=== PATIENT | female | born 1965 | race Caucasian/White ===

== ENCOUNTER 2016-08-24 06:22 | Day surgery (SDC) | payer OTHER ==
[2016-08-23 09:22] LABS: A/G RATIO 1.2 (0.7-1.9); ALBUMIN 4.2 G/DL (3.5-5.0); ALKALINE PHOSPHATASE 94 U/L (45-117); CALCIUM, SERUM 9.3 MG/DL (8.5-10.4); CHLORIDE, SERUM 104 MMOL/L (96-112); CO2 (CARBON DIOXIDE) 30 MMOL/L (24-34); CREATININE 0.95 MG/DL (0.55-1.02); GFR AFRICAN AMERICAN 80 ML/MIN (>=60); GFR NON AFRICAN AMERICAN 69 ML/MIN (>=60); GLOBULIN 3.5 G/DL (2.5-4.1); GLUCOSE, SERUM 87 MG/DL (60-99); POTASSIUM, SERUM 4.7 MMOL/L (3.5-5.3); SGOT(AST) 17 U/L (5-40); SGPT(ALT) 38 U/L (5-65); SODIUM, SERUM 143 MMOL/L (135-148); TOTAL BILIRUBIN 0.5 MG/DL (0-1.2); TOTAL PROTEIN 7.7 G/DL (6.0-8.5)
[2016-08-23 09:24] LABS: BUN (BLOOD UREA NITROGEN) 11 MG/DL (6-23)
[2016-08-23 09:26] LABS: BASOPHILS 0.8 %; BASOPHILS ABSOLUTE 0.07 10/3/uL (0.0-0.16); EOSINOPHILS ABSOLUTE 0.25 10/3/uL (0.0-0.53); HEMATOCRIT 42.9 % (36.0-48.0); HEMOGLOBIN 15.2 g/dL (12.0-16.0); IMMATURE GRANULOCYTES 0.1 %; IMMATURE GRANULOCYTES ABSOLUTE 0.01 10/3/uL (0.0-0.11); LYMPHOCYTES 35.3 %; LYMPHOCYTES ABSOLUTE 2.92 10/3/uL (0.67-4.30); MEAN CORPUS HGB CONC 35.4 g/dL (32.0-36.0); MEAN CORPUSCULAR HEMOGLOB 31.5 pg (26.0-34.0); MEAN PLATELET VOLUME 10.3 fL (9.2-13.0); MONOCYTES 9.2 %; MONOCYTES ABSOLUTE 0.76 10/3/uL (0.21-1.20); NEUTROPHILS 51.6 %; NEUTROPHILS ABSOLUTE 4.27 10/3/uL (2.02-8.40); RBC DISTRIBUTION WIDTH 12.6 % (12.0-16.0); RED CELL COUNT 4.82 10/6/uL (4.0-5.6); WHITE BLOOD CELLS 8.3 10/3/uL (4.5-10.5)
[2016-08-23 09:28] LABS: MANUAL DIFF NO %; PLATELET COUNT 315 10/3/uL (150-400)
--- NOTE | ~2016-08-24 | OP ---
Record Of Operation [facility] [address] [place]. [address] NAME: NORBERTO DUNHAM : 65 STATUS : [facility]#: [id number] AGE: 51 ADM/REG DATE : 08/24/16 MR#: [id number] REPORT SERV DATE: 08/27/16 DICTATED BY: MURALI SUTTON JR. DATE: 08/24/16 REPORT STATUS : Draft TRANSCRIBED BY: CAMPOS DATE: 08/24/16 DATE OF PROCEDURE: REASON FOR SURGERY: This 51-year-old patient presents with a biopsy-proven malignancy of the left breast and is now to undergo breast preservation therapy in the form of left breast central segmentectomy and sentinel node biopsy. The overall features are favorable, but the lesion does adhere and seen to invade the undersurface of the nipple areolar process, and therefore, this will be resected. She has been counseled on multiple occasions and seen the plastic surgeon and we have discussed reconstruction plans. Once final margins were obtained, re-visitation with Oncoplastic Surgery and possible augmentation with mastopexy on the remaining side will be performed. The patient will need postoperative x-ray therapy as standard of care. Hopefully, she can avoid chemotherapy, but she is young and therefore visitation with the medical oncologist is certainly necessary. PREOPERATIVE DIAGNOSIS: Carcinoma, left breast. POSTOPERATIVE DIAGNOSIS: Carcinoma, left breast. SURGERY PERFORMED: [place] node localization followed by central left breast segmentectomy and sentinel node removal. PROCEDURE IN DETAIL: The patient was initially injected in the nuclear medicine facility. She was taken to the operating room and under general anesthesia, she was prepped and draped in supine position in the usual sterile fashion. The previously marked vertically oriented ellipse was incised centrally. Flaps were not elevated as this was not necessary for a 3- dimensional excision of this mass. A generous 1 cm palpable margin was kept around it in the gross state. The specimen was removed and oriented for pathology. Initial sectioning reveals the retracted margins at 0.5 cm, which is anticipated. The wound was irrigated and hemostasis obtained. The wound was closed with two layers of Monocryl. Attention turned to the left axilla. With help of the gamma probe, a small curvilinear incision was made and vertical dissection was carried down to the level 1 position of activity. Two small nodes were removed, but were inactive on the surface of the deeper active node. The two nonsentinel nodes were sent for permanent sectioning. Further dissection necessitated dissection along the lateral posterior border of the pectoralis minor. This level 2 node acquired considerable retraction in the depths of the wound to retrieve. It was very small and clinically benign. The recordings of the node and background count are as logged in the surgical book. This was sent for pathology. The wound was irrigated and hemostasis obtained. The wound was closed with two layers of Monocryl. The patient tolerated the procedure well without complications. ESTIMATED BLOOD LOSS: 15 mL. Record Of Operation [place] [id number] [facility] [place]. [address] NAME: NORBERTO DUNHAM : 65 STATUS : [facility]#: [id number] AGE: 51 ADM/REG DATE : 08/24/16 MR#: [id number] REPORT SERV DATE: 08/27/16 DICTATED BY: MURALI SUTTON JR. DATE: 08/24/16 REPORT STATUS : Draft TRANSCRIBED BY: CAMPOS DATE: 08/24/16 SPONGE COUNT: Correct. /CAMPOS Murali Sutton Jr., M.D. / [id number] CC: Aníbal Dickson Jr., DO Mark Brzezienski, M.D. Christopher I Innes, M.D. [facility]
[~2016-08-24 06:22] MED LIST: B COMPLETE PO; EZFE 200200 MG PO; FISH-EPA1000 MG PO; PRIN10 PO; PROMETRIUM200 MG PO; [UNRECOGNIZED DRUG - OTHER] PO
[2016-10-10] MEDS ORDERED: VITC500 PO (11:31)
[2016-11-16] MEDS ORDERED: SUDAFED 12HR120 MG PO (10:48)
[2016-11-22] MEDS ORDERED: PERCOCET 7.5/321 TAB PO (07:38)
[2016-11-22] MEDS ORDERED: K500 PO (07:38)
[2016-11-22] MEDS ORDERED: AT25 PO (07:39)
[2016-11-22] MEDS ORDERED: ALEVE220 MG PO (07:48)
[2016-11-22] MEDS ORDERED: MOMUD PO (07:48)
== END 2016-08-24 17:09 | disposition home or self-care (01) ==
LOC: SDC 06:22
PROVIDERS: Surgery Surgical Oncology
PROC: 07B60ZX Excision of Left Axillary Lymphatic, Open Approach, Diagnostic (ICD-10-PCS; 2016-08-24)
PROC: 0HTU0ZZ Resection of Left Breast, Open Approach (ICD-10-PCS; principal; 2016-08-24 07:45)
DX: C50.112 Malignant neoplasm of central portion of left female breast (principal); I10 Essential (primary) hypertension; Z88.0 Allergy status to penicillin
CPT/HCPCS: 71020; 78195; 80053; 84703; 85025; 88305; 88307; 88342; 93005; A9270-GY; A9541; J1170; J2250; J2405; J2550; J2710; J3010; J3370

== ENCOUNTER 2016-09-02 15:27 | Emergency (ER) | payer OTHER ==
[2016-10-10] MEDS ORDERED: VITC500 PO (11:31)
[2016-11-16] MEDS ORDERED: SUDAFED 12HR120 MG PO (10:48)
[2016-11-22] MEDS ORDERED: PERCOCET 7.5/321 TAB PO (07:38)
[2016-11-22] MEDS ORDERED: K500 PO (07:38)
[2016-11-22] MEDS ORDERED: AT25 PO (07:39)
[2016-11-22] MEDS ORDERED: MOMUD PO (07:48)
[2016-11-22] MEDS ORDERED: ALEVE220 MG PO (07:48)
== END 2016-09-02 17:18 | disposition home or self-care (01) ==
LOC: ER 15:27
DX: T81.32XA Disruption of internal operation (surgical) wound, not elsewhere classified, initial encounter (principal); I10 Essential (primary) hypertension; Z85.3 Personal history of malignant neoplasm of breast; Z88.0 Allergy status to penicillin; Z79.899 Other long term (current) drug therapy
CPT/HCPCS: 99284

== ENCOUNTER 2016-10-12 07:13 | Day surgery (SDC) | payer OTHER ==
[2016-10-11 09:05] LABS: PARTIAL THROMBO TIME 29.3 SEC (22.5-37.2); PROTIME (NOT ORD) 12.9 SEC (12.0-14.5)
[2016-10-11 09:14] LABS: BASOPHILS 0.9 %; BASOPHILS ABSOLUTE 0.06 10/3/uL (0.0-0.16); EOSINOPHILS 4.7 %; EOSINOPHILS ABSOLUTE 0.32 10/3/uL (0.0-0.53); HEMATOCRIT 43.2 % (36.0-48.0); IMMATURE GRANULOCYTES 0.3 %; IMMATURE GRANULOCYTES ABSOLUTE 0.02 10/3/uL (0.0-0.11); LYMPHOCYTES 33.9 %; LYMPHOCYTES ABSOLUTE 2.29 10/3/uL (0.67-4.30); MANUAL DIFF NO %; MEAN CORPUS HGB CONC 34.7 g/dL (32.0-36.0); MEAN CORPUSCULAR HEMOGLOB 31.6 pg (26.0-34.0); MEAN CORPUSCULAR VOLUME 91.1 fL (80-100); MEAN PLATELET VOLUME 10.5 fL (9.2-13.0); MONOCYTES ABSOLUTE 0.54 10/3/uL (0.21-1.20); NEUTROPHILS 52.2 %; NEUTROPHILS ABSOLUTE 3.52 10/3/uL (2.02-8.40); PLATELET COUNT 256 10/3/uL (150-400); RBC DISTRIBUTION WIDTH 12.5 % (12.0-16.0); RED CELL COUNT 4.74 10/6/uL (4.0-5.6); WHITE BLOOD CELLS 6.8 10/3/uL (4.5-10.5)
[2016-10-11 09:26] LABS: BUN (BLOOD UREA NITROGEN) 13 MG/DL (6-23); CALCIUM, SERUM 9.5 MG/DL (8.5-10.4); CHLORIDE, SERUM 106 MMOL/L (96-112); CO2 (CARBON DIOXIDE) 33 MMOL/L (24-34); CREATININE 0.96 MG/DL (0.55-1.02); GFR AFRICAN AMERICAN 79 ML/MIN (>=60); GFR NON AFRICAN AMERICAN 68 ML/MIN (>=60); GLUCOSE, SERUM 77 MG/DL (60-99); PFA (COL/EPI) 115 SEC (72-180); POTASSIUM, SERUM 4.7 MMOL/L (3.5-5.3); SODIUM, SERUM 140 MMOL/L (135-148)
--- NOTE | ~2016-10-12 | OP ---
Record Of Operation [facility] [address] [place]. [address] NAME: NORBERTO DUNHAM : 65 STATUS : [facility] PAT#: [id number] AGE: 51 ADM/REG DATE : 10/12/16 MR#: [id number] REPORT SERV DATE: 10/12/16 DICTATED BY: MURALI SUTTON JR. DATE: 10/12/16 REPORT STATUS : Draft TRANSCRIBED BY: MODL DATE: 10/12/16 DATE OF PROCEDURE: REASON FOR SURGERY: This 51-year-old patient has undergone central segmentectomy on the left side for a moderate sized tumor that had one of three nodes microscopically involved. She has undergone extensive counseling and the plan is for her to undergo Oncoplastic revision this coming week with reduction of the remaining right side. Post treatment radiation therapy will be necessary. She has been counseled by her medical oncologist and apparently the plan is indeed to continue her on aromatase inhibitor. At the time with the resection of the nipple and areolar process, there was a second independent nodule that was found in the periphery at the deep 12 to 3 o'clock position with an encroachment on the margin. It was felt that revision of this area including the original 12 to 3 o'clock margin for the primary tumor would be in order. PREOPERATIVE DIAGNOSIS: Carcinoma, left breast. POSTOPERATIVE DIAGNOSIS: Carcinoma, left breast. SURGEON: Murali Sutton M.D. SURGERY PERFORMED: Repeat left breast segmentectomy. PROCEDURE IN DETAIL: Under general anesthesia, the patient was prepped and draped in supine position in usual sterile fashion. The upper half of the vertical incision was incised. Flaps were dissected until the surface of the previous resection was encountered. The area had reduced nicely and scarred in where the cavity was fairly small considering the large resection that was performed. I entered the cavity on the superficial 6 o'clock margin. A 3-dimensional excision of the entire upper half of the site was performed concentrating on the 12 to 3 o'clock position with it and dissected entirely down through the deep section and with clear margins on the posterior margin also. This sphere of tissue was oriented for pathology. It was intact throughout except for the intentional opening on the 6 o'clock margin. The wound was irrigated and hemostasis was obtained. The wound was closed with two layers of Monocryl. The patient tolerated the procedure well without complications. ESTIMATED BLOOD LOSS: Less than 5 mL. SPONGE COUNT: Correct. Record Of Operation [facility] [place]. [address] NAME: NORBERTO DUNHAM : 65 STATUS : [facility] PAT#: [id number] AGE: 51 ADM/REG DATE : 10/12/16 MR#: [id number] REPORT SERV DATE: 10/12/16 DICTATED BY: MURALI SUTTON JR. DATE: 10/12/16 REPORT STATUS : Draft TRANSCRIBED BY: CAMPOS DATE: 10/12/16 /CAMPOS Murali Sutton Jr., M.D. / [id number] CC: Aníbal Dickson Jr., DO Christopher I Innes, M.D. Mark Brzezienski, M.D. Brooke R. Daniel, M.D. [facility]
[~2016-10-12 07:13] MED LIST changes: +VITC500 PO
[2016-11-16] MEDS ORDERED: SUDAFED 12HR120 MG PO (10:48)
[2016-11-22] MEDS ORDERED: K500 PO (07:38)
[2016-11-22] MEDS ORDERED: PERCOCET 7.5/321 TAB PO (07:38)
[2016-11-22] MEDS ORDERED: AT25 PO (07:39)
[2016-11-22] MEDS ORDERED: ALEVE220 MG PO (07:48)
[2016-11-22] MEDS ORDERED: MOMUD PO (07:48)
== END 2016-10-12 23:59 | disposition home or self-care (01) ==
LOC: SDC 07:13
PROVIDERS: Surgery Surgical Oncology
PROC: 0HBU0ZX Excision of Left Breast, Open Approach, Diagnostic (ICD-10-PCS; principal; 2016-10-12 08:45)
DX: C50.812 Malignant neoplasm of overlapping sites of left female breast (principal); I10 Essential (primary) hypertension; D50.0 Iron deficiency anemia secondary to blood loss (chronic); Z98.890 Other specified postprocedural states; Z88.0 Allergy status to penicillin; Z79.899 Other long term (current) drug therapy
CPT/HCPCS: 80048; 84703; 85025; 85576; 85610; 85730; 88307; 93005; A9270-GY; J0690; J2250; J2270; J2405; J3010; J3370